=== PATIENT | female | born 1990 | race Caucasian/White ===

== ENCOUNTER 2023-01-11 13:36 | Inpatient (IN) ==
[~2023-01-11 13:36] MED LIST: ceFAZolin 2000MG 2,000 MG/15 ML SYR IV SCH
--- NOTE | 2023-01-11 13:57 | History & Physical Report ---
Date of Service January 11, 2023 Assessment & Plan (1) Previous delivery affecting , antepartum: Plan: Repeat section and bilateral salpingectomy The patient was counseled to the nature of the procedure including alternatives such as labor. Risks were discussed including bleeding infection injury to bowel bladder ureter vessels and even baby. The risks of internal organ injury were discussed as being higher with prior sections. Deep Vein Thrombosis, pulmonary embolus and breakdown of the incision discussed. Deep vein thrombosis pulmonary embolus hernia and failure of the incision to heal were discussed Patient verbalized understanding of this and was given ample time to ask questions Patient has completed 39 weeks and is now 2 to 3 cm would recommend as she is progressed from prior checks and since she is after 39 weeks there is no signs and delay with painful contractions History of Present Illness Primary Care Provider: NO PCP Visit SKY Calculator Estimated Delivery Date Method Current WG Current Estimate 01/16/23 LMP (Certain) 38w 1d LMP: 04/11/22 : 2 Full term: 1 Premature: 0 Total Number of Induced Abortions: 0 Total Number of Spontaneous Abortions: 0 Ectopics: 0 Multiple births: 0 Number of Living Children: 1 and Delivery Plans Previous *desires repeat c/s and tubal C/S WITH TUBAL SCHEDULED FOR 01/14/[address] RAMÍREZ H/o migraines--(used propranolol in prior ) *neuro consult/headache specialist -on metoprolol -growth US starting at 24wks Flu vaccine given 06/10/22- MK Presents in active labor Allergies Allergy/AdvReac Type Severity Reaction Status Date / Time No Known Allergies Allergy Verified 01/03/23 12:00 Home Medications Medication Instructions Recorded Confirmed Type prenat.vits,yvette,[id number] 1 tab PO DAILY 06/02/22 01/11/23 History metoprolol tartrate 25 mg tablet 25 mg PO BID #60 tabs 09/22/22 01/11/23 Rx loratadine 10 mg tablet (Claritin) 10 mg PO DAILY 01/03/23 01/11/23 History Patient History Medical History History of chicken pox History of COVID-02 Aug 2022 > not hospitalized Hx of migraines metoprolol for this, not HTN Surgical History S/P section x1 S/P wisdom tooth extraction Family History Grandfather (Paternal) Heart disease Denies family history of Ovarian cancer Breast cancer Colorectal cancer Social History Smoking Status: Never smoker Second Hand Exposure: No; Do You Dip or Chew Tobacco: No; Hx Alcohol Use: No Hx Substance Use: No Preferred Language: Bulgarian Communication Ability: Effective Manager Research Development Required: No Beliefs That Will Affect Care: None marital status: marital status details: Dillon Castellanos ([phone] Current Living Situation: Spouse Current Living Situation Comment: Lives at home with spouse and son current occupational status: unemployed current occupation: homemaker Feels Safe at Home: Yes Assistive Devices: None Review of Systems as per Subjective / HPI Physical Exam Constitutional: WD/WN, vitals as above well developed and well nourished Respiratory: normal respiratory effort, lungs clear to auscultation normal respiratory effort Cardiovascular: RRR, no murmur, no edema Gastrointestinal (Abdomen): normal bowel sounds, soft, nontender, no hepatosplenomegaly Results & Data Vital Signs (Past 12 Hours) Vital Signs Pulse BP 01/11/23 13:49 112 H 140/87 Coding Level of Care Code None Diagnoses Previous delivery affecting , antepartum O34.219
--- NOTE | 2023-01-11 14:00 | Anesthesiology Consultation ---
Date of Service January 11, 2023 Assessment & Plan (1) Encounter for pre-operative examination: Chart Review Chart Review: Acceptable Risk for Surgery and Patient NOT seen in Pre Admission Testing Consults Requested none History Surgery Operation Date: 01/11/23 13:55 Proposed Procedures p Section in LD - J. Panda Littlejohn MD, FACOG Allergies Allergy/AdvReac Type Severity Reaction Status Date / Time No Known Allergies Allergy Verified 01/03/23 12:00 Medications Home Medications Medication Instructions Recorded Confirmed Last Taken prenat.vits,yvette,qoy-imvq-jduja 1 tab PO DAILY 06/02/22 01/11/23 01/10/23 metoprolol tartrate 25 mg tablet 25 mg PO BID #60 tabs 09/22/22 01/11/23 01/10/23 loratadine 10 mg tablet (Claritin) 10 mg PO DAILY 01/03/23 01/11/23 01/10/23 Past Medical History Medical History History of chicken pox History of COVID-02 Aug 2022 > not hospitalized Hx of migraines metoprolol for this, not HTN Past Family History Family History Grandfather (Paternal) Heart disease Denies family history of Ovarian cancer Breast cancer Colorectal cancer Past Surgical History Surgical History S/P section x1 S/P wisdom tooth extraction Social History Smoking Status: Never smoker Do You Dip or Chew Tobacco: No Hx Alcohol Use: No Hx Substance Use: No substance use type: does not use Physical Exam Vital Signs Last Vital Signs Pulse 112 H 01/11/23 13:49 BP 140/87 01/11/23 13:49
[2023-01-11] MEDS ORDERED: PHENYLEPHRINE HCL 10 MG/ML VIAL ONE (14:06)
[2023-01-11] MEDS ORDERED: ONDANSETRON INJ 2 MG/ML 2 ML VIAL ONE (14:06)
[2023-01-11] MEDS ORDERED: KETOROLAC 30 MG/ML VIAL ONE (14:06)
[2023-01-11] MEDS ORDERED: OXYTOCIN 10 UNITS/ML VIAL ONE (14:06)
[2023-01-11] MEDS ORDERED: MoRPHine SULFATE PF 1 MG/ML 10 ML AMP/VIAL ONE (14:07)
[2023-01-11] MEDS ORDERED: fentaNYL citrate PF 100 MCG/2 ML VIAL ONE (14:07)
[2023-01-11] MEDS ORDERED: CITRIC ACID/SODIUM CITRATE 15 ML UDC ONE (14:13)
[2023-01-11] MEDS ORDERED: LACTATED RINGER'S 1,000 ML IV ONE (14:17)
[2023-01-11 14:47] LABS: Basophils # (auto) 0.06 K/uL (0-0.2); Basophils % (auto) 0.5 %; Eosinophils # (auto) 0.01 K/uL (0-0.50); Eosinophils % (auto) 0.1 %; Hematocrit (blood only) 37.7 % (37.0-47.0); Hemoglobin 12.4 g/dl (12.0-16.0); Immature Granulocytes # (auto) 0.23 K/uL (0.01-0.20); Immature Granulocytes % (auto) 2.1 %; Lymphocytes # (auto) 1.29 K/uL (1.2-3.4); Lymphocytes % (auto) 11.5 %; Mean Corpuscular Hemoglobin 30.5 pg (25.0-34.0); Mean Corpuscular Hgb Conc 32.9 g/dL (32.0-36.0); Mean Corpuscular Volume 92.6 fL (80.0-100.0); Mean Platelet Volume 10.2 fL (9.4-12.4); Monocytes # (auto) 0.68 K/uL (0.11-0.59); Monocytes % (auto) 6.1 %; Neutrophils # (auto) 8.92 K/uL (1.40-6.50); Neutrophils % (auto) 79.7 %; Platelet Count 294 K/uL (130-400); RDW Coefficient of Variation 14.5 % (11.5-14.5); Red Blood Count 4.07 M/uL (4.20-5.40); White Blood Count 11.19 K/ul (4.8-10.8)
[2023-01-11 14:52] LABS: Albumin Globulin Ratio 1.2 (0.9-2); BUN Creatinine Ratio 26.7 (10-20); Bilirubin,Total 0.5 mg/dl (0.2-1.0); Calcium 9.3 mg/dl (8.6-10.3); Creatinine Clr Calc Pharmacy 121.5 ml/min; Est GFR (African American) 139.8 ml/min; Est GFR (Non-African American) 120.6 ml/min; Globulin 3.3 gm/dl (2.5-4.0); Potassium 3.7 mmol/L (3.5-5.1); Total Protein 7.3 gm/dl (6.0-8.3)
[2023-01-11] MEDS ORDERED: LACTATED RINGER'S 500 ML IV PRN (15:33)
[2023-01-11] MEDS ORDERED: ONDANSETRON INJ 2 MG/ML 2 ML VIAL IV PRN (15:33)
[2023-01-11] MEDS ORDERED: NALOXONE HCL 0.4 MG/1 ML VIAL/CARP IV PRN (15:33)
[2023-01-11] MEDS ORDERED: ACETAMINOPHEN 1,000 MG/100 ML VIAL IV PRN (15:33)
[2023-01-11] MEDS ORDERED: diphenhydrAMINE 50 MG/ML VIAL IV PRN (15:33)
[2023-01-11] MEDS ORDERED: NALOXONE HCL 1 MG in SODIUM CHLORIDE 0.9% 1000ML 1,000 ML IV PRN (15:33)
[2023-01-11] MEDS ORDERED: ePHEDrine sulfate 50 MG/ML AMP IV PRN (15:33)
[2023-01-11] MEDS ORDERED: NALOXONE HCL 0.08 MG in SYRINGE 1.8 ML IV PRN (15:33)
[2023-01-11] MEDS ORDERED: KETOROLAC 30 MG/ML VIAL IV PRN (15:33)
[2023-01-11] MEDS ORDERED: MoRPHine SULFATE PF 1 MG/ML 10 ML AMP/VIAL INT SPINAL ONE (15:33)
[2023-01-11] MEDS ORDERED: HYDROmorphone INJ 0.5 MG/0.5 ML SYR IV PRN (15:33)
[2023-01-11] MEDS ORDERED: NALBUPHINE HCL INJ 10 MG/ML AMP IV PRN (15:33)
[2023-01-11] MEDS ORDERED: PROMETHAZINE HCL 25 MG in SODIUM CHLORIDE 0.9% 50 ML IV PRN (15:33)
[2023-01-11] MEDS ORDERED: NO NARCOTICS OR SEDATIVES SCH (15:45)
[2023-01-11] MEDS ORDERED: DC INTRASPINAL MORPHINE SCH (15:45)
[2023-01-11] MEDS ORDERED: SODIUM CHLORIDE 0.9% 1000ML 1,000 ML IV SCH (15:45)
--- NOTE | 2023-01-11 16:10 | Operative Report ---
PG Post Operative Report Pre & Post Diagnosis Operation Date: 01/11/23 13:55 Pre-Op Diagnosis: Repeat section, presents in active labor. Post-Op Diagnosis: Repeat section, presents in active labor. I identified the patient and participated in the time-out.: Yes Procedure Operation Date: 01/11/23 13:55 Actual Procedures p Section in LD - Kiesha Littlejohn MD, FACOG Surgeon Kiesha Littlejohn MD, FACOG Canal Lock Tender Chief Operator Dr. Burns Estimated Blood Loss 600 Findings Consistent with Post-Op Diagnosis normal anatomy Specimens Cord blood Description of Procedure Regional anesthetic had been given by anesthesia patient was prepped and draped with a leftward tilt preoperative antibiotics had been given in appropriate timing by anesthesiology. Once the prep was allowed to fully dry timeout was performed. Pickups with teeth were used to test the incision area was found to be adequate for incision as the patient did not feel sharp pain. Scalpel was used to make a Pfannenstiel incision on the lower abdomen. We then cut through the subcutaneous fat down to the level of the anterior rectus sheath fascia this was cut in the midline and then extended laterally with the curved Andres scissors. At this stage we then placed 2 Rebecca clamps on the anterior aspect of the fascia. Using the curved Andres's we are able to dissect the fascia superiorly away from the rectus muscles. Care was taken to maintain hemostasis. Rebecca clamps were then placed to the inferior aspect of the anterior sheath of the fascia. Fascia was then dissected away from the rectus muscles inferiorly towards the pubic bone. A Rebecca was then placed in the midline both inferiorly and superiorly. This w as to allow exposure by retraction rectus muscles were in the midline with were then able to cut through the peritoneum and then enter the peritoneal cavity. Opening was enlarged to allow exposure of the peritoneal cavity both superiorly and inferiorly. Once adequate space was obtained a bladder retractor was placed to expose the lower segment Metzenbaums were used to dissect the bladder flap inferiorly away from the uterus. This was done sharply bladder retractor was then repositioned to expose the lower segment of the uterus Fresh scalpel was used to make a low transverse incision on the uterus. Uterus was then entered bluntly with the operators finger, membranes ruptured and the opening was enlarged using the operators fingers bluntly pulling superiorly and inferiorly to allow exposure. Baby was delivered by first flexion of the head elevation of the head out of the pelvis and then pressure by the triage assistant on the maternal abdomen. Baby's head was then delivered mouth and then nares were suctioned and then using gentle traction the baby was fully delivered. Live vigorous infant. Fluid was clear cord clamped and cut cord gases obtained cord blood obtained baby handed to pediatrics. Placenta removed was removed with traction we ensure the entire placenta was removed with a moist lap sponge into the uterus Uterus was then exteriorized. IV Pitocin had been started by anesthesia tone improved there were no extensions the uterus was then closed using 0 Monocryl in a 2 layer closure the first layer closed in a running locked fashion from left to right and then a second closure from left to right in a running nonlocked fashion. At this stage hemostasis was excellent. The patient had requested tubal ligation we have talked about salpingectomy spe cifically using a Lisa we grasped the right fallopian tube first at the fimbriated end using a LigaSure device we coagulated and then cut the mesosalpinx attachments with the fallopian tube we did this progressively until the full tube was removed. Exact same process was repeated on the left side hemostasis was excellent and it should be noted after placing the uterus back in the peritoneal cavity revisualize the area of the tubal and it was hemostatic Uterus was placed back in the peritoneal cavity with suction irrigation out and inspection of the uterus at this stage revealed excellent hemostasis Retractors were removed urine color was clear at this stage of the case we inspected the rectus muscles they were hemostatic fascia was closed with 0 Vicryl subcutaneous fat was irrigated and closed with 3-0 Vicryl skin closed with 4-0 subcuticular Monocryl I attest to the content of the Intraoperative Record and any orders documented therein. Any exceptions are noted below. OB Procedure Charges 30591
[2023-01-11] MEDS ORDERED: MAGNESIUM HYDROXIDE SUSP 30 ML UDC PO PRN (16:36)
[2023-01-11] MEDS ORDERED: LACTATED RINGER'S 1,000 ML IV SCH (16:36)
[2023-01-11] MEDS ORDERED: SENNA 8.6 MG TAB PO PRN (16:36)
[2023-01-11] MEDS ORDERED: HYDROCORTISONE ACETATE 25 MG SUPP PR PRN (16:36)
[2023-01-11] MEDS ORDERED: DIPHTHERIA/TETANUS/PERTUSSIS Vaccine (Tdap, Age 7+yrs) 0.5mL SYR/VL IM ONE (16:36)
[2023-01-11] MEDS ORDERED: BENZOCAINE 20% AER SPR 82.5 GM CAN EXT PRN (16:36)
--- NOTE | 2023-01-11 17:14 | Anesthesiology Progress Note ---
Date of Service January 11, 2023 Anesthesia Post Procedure Vital Signs Vital Signs: Temp Pulse Resp BP Pulse Ox 01/11/23 16:52 18 01/11/23 16:42 18 01/11/23 16:32 18 01/11/23 16:12 97.5 F L 20 01/11/23 16:22 20 01/11/23 17:12 87 125/75 01/11/23 17:09 82 98 01/11/23 17:04 80 99 01/11/23 17:03 79 122/66 01/11/23 16:59 85 98 01/11/23 16:54 88 98 01/11/23 16:52 78 115/68 01/11/23 16:49 85 98 01/11/23 16:44 86 98 01/11/23 16:42 81 127/72 01/11/23 16:39 97 H 98 01/11/23 16:34 98 01/11/23 16:34 94 H 01/11/23 16:34 91 H 125/73 01/11/23 16:29 93 H 98 01/11/23 16:24 77 98 01/11/23 16:23 75 104/56 L 01/11/23 16:12 90 103/60 01/11/23 16:11 97 H 99 01/11/23 14:05 99 H 126/89 01/11/23 13:49 112 H 140/87 Transfer of Care Handoff Completed per policy Notes Mental Status: alert / awake / arousable and participated in evaluation Patient Amnestic to Procedure: Yes Nausea / Vomiting: adequately controlled Pain: adequately controlled Airway Patency, RR, SpO2: stable & adequate BP & HR: stable & adequate Hydration State: stable & adequate Neuraxial Anesthesia: was administered and sensory block is resolving Anesthetic Complications: no major complications apparent and Pt Satisfied with anesthetic care
[2023-01-11] MEDS: SIMETHICONE 80 MG CHEW PO SCH ×2 (17:50→20:38)
[2023-01-11] MEDS: OXYTOCIN 20 UNITS in LACTATED RINGER'S 1,000 ML IV SCH (19:12)
[2023-01-11] MEDS: METOPROLOL TARTRATE 25 MG TAB PO SCH (20:38)
[2023-01-11] MEDS: DOCUSATE SODIUM 100 MG CAP PO SCH (20:38)
[2023-01-12] MEDS: OXYTOCIN 20 UNITS in LACTATED RINGER'S 1,000 ML IV SCH (03:09)
[2023-01-12 06:21] LABS: Basophils # (auto) 0.04 K/uL (0-0.2); Basophils % (auto) 0.4 %; Eosinophils # (auto) 0.09 K/uL (0-0.50); Hematocrit (blood only) 28.7 % (37.0-47.0); Hemoglobin 9.6 g/dl (12.0-16.0); Immature Granulocytes # (auto) 0.12 K/uL (0.01-0.20); Immature Granulocytes % (auto) 1.3 %; Lymphocytes # (auto) 1.54 K/uL (1.2-3.4); Lymphocytes % (auto) 16.4 %; Mean Corpuscular Hemoglobin 30.5 pg (25.0-34.0); Mean Corpuscular Hgb Conc 33.4 g/dL (32.0-36.0); Mean Corpuscular Volume 91.1 fL (80.0-100.0); Mean Platelet Volume 10.1 fL (9.4-12.4); Monocytes # (auto) 0.79 K/uL (0.11-0.59); Monocytes % (auto) 8.4 %; Neutrophils # (auto) 6.83 K/uL (1.40-6.50); Neutrophils % (auto) 72.5 %; Platelet Count 234 K/uL (130-400); RDW Coefficient of Variation 14.3 % (11.5-14.5); RDW Standard Deviation 46.8 fL (36.4-46.3); Red Blood Count 3.15 M/uL (4.20-5.40); White Blood Count 9.41 K/ul (4.8-10.8)
--- NOTE | 2023-01-12 08:01 | Obstetrical Progress Note ---
Date of Service <Aldo BurnsDO - Last Filed: 01/12/23 08:01> January 12, 2023 Assessment & Plan <Aldo BurnsDO - Last Filed: 01/12/23 08:01> (1) Postcesarean section: - Feels well today. Eating well, Condon in place, will remove Condon today and have patient ambulate on her own. - Pain well controlled without the need of pain meds at this time. - Routine care -- OOB, ambulation, diet progression as tolerated - After discharge will have 6 week follow-up with Annet[facility]. Day #:: 1 <Kiesha Littlejohn MD, FACOG - Last Filed: 01/13/23 07:52> (1) Postcesarean section: Subjective <Aldo BurnsDO - Last Filed: 01/12/23 08:01> Ambulation: limited ambulation Voiding: condon catheter in place Diet Tolerance:: regular diet Lochia:: Small Feeding Type:: breast feeding Current Pain Level(1-10): 3 Review of Systems Denies fever, chills, sweats Denies shortness of breath, difficulty breathing, chest pain, palpitations, chest pressure. Denies breast pain. Denies dysuria. Denies changes in vision. Mild headache Physical Exam <Aldo BurnsDO - Last Filed: 01/12/23 08:01> General: Alert, oriented. No acute distress. Cardiac: Regular rate and rhythm, no murmurs/rubs/gallops. Respiratory: Clear to auscultation bilaterally a/p, no wheezes/rales/rhonchi. No increased work of breathing. Symmetrical chest rise. No respiratory distress. Abdomen: Soft, nontender, nondistended. Bowel sounds present. Uterus: Uterine fundus firm, palpable 1 cm below umbilicus. Lower Extremities: No lower extremity edema or swelling. No deep calf pain. Chandler's negative bilaterally. Results & Data <Aldo BurnsDO - Last Filed: 01/12/23 08:01> Vital Signs (Past 12 Hours) Vital Signs Temp Pulse Resp BP Pulse Ox O2 Del Method 01/12/23 07:00 16 97 01/12/23 07:00 36.8 C 85 16 107/59 L 99 Room Air 01/12/23 05:28 18 98 01/12/23 04:28 18 97 01/12/23 03:30 36.9 C 82 18 99/62 L 100 Room Air 01/12/23 03:35 18 100 01/12/23 02:13 18 96 01/12/23 01:05 16 93 01/12/23 00:10 18 95 01/11/23 23:08 36.7 C 71 18 115/71 98 Room Air 01/11/23 23:08 18 98 01/11/23 22:23 18 98 01/11/23 21:15 18 97 01/11/23 20:37 89 122/77 01/11/23 20:26 18 96 <Kiesha Littlejohn MD, FACOG - Last Filed: 01/13/23 07:52> Co-Signing Physician Notes Resident Physician Supervision Note: I was present with Dr. Burns during the history and exam. I discussed the case with the resident and agree with the findings and plan as documented in the note. Any exceptions or clarifications are listed here: [None] Documented By: Kiesha Littlejohn MD, FACOG Resident Activity Tracking <Aldo Burns DO - Last Filed: 01/12/23 08:01> Resident Involvement: Resident Care Provided Care Provided: OB Delivery
[2023-01-12] MEDS: LORATADINE 10 MG TAB PO SCH (08:35)
[2023-01-12] MEDS: FERROUS SULFATE 325 MG TAB PO SCH (08:36)
[2023-01-12] MEDS: DOCUSATE SODIUM 100 MG CAP PO SCH ×2 (08:36→20:12)
[2023-01-12] MEDS: METOPROLOL TARTRATE 25 MG TAB PO SCH ×2 (08:36→20:59)
[2023-01-12] MEDS: PRENATAL VITAMIN 1 TAB PO SCH (08:36)
[2023-01-12] MEDS: IBUPROFEN 600 MG TAB PO PRN ×3 (08:36→20:12)
[2023-01-12] MEDS: SIMETHICONE 80 MG CHEW PO SCH ×4 (08:36→20:12)
[2023-01-12] MEDS ORDERED: NON-FORMULARY MEDICATION (Prenat.Vits,Cal,Min-Iron-Folic tablet) PO SCH (09:00)
[2023-01-12] MEDS ORDERED: ONDANSETRON INJ 2 MG/ML 2 ML VIAL IV PRN (09:33)
[2023-01-12] MEDS ORDERED: KETOROLAC 30 MG/ML VIAL IV PRN (09:33)
[2023-01-12] MEDS ORDERED: diphenhydrAMINE 50 MG/ML VIAL IV PRN (09:33)
[2023-01-12] MEDS ORDERED: diphenhydrAMINE Capsule 25 MG CAP PO PRN (09:33)
[2023-01-12] MEDS ORDERED: PROMETHAZINE HCL 25 MG in SODIUM CHLORIDE 0.9% 50 ML IV PRN (09:33)
[2023-01-12] MEDS ORDERED: bisacodyL 5 MG TABEC PO SCH (20:00)
[2023-01-12] MEDS: oxyCODONE/ACETAMINOPHEN 5mg/325mg TAB PO PRN (22:30)
[2023-01-13] MEDS: oxyCODONE/ACETAMINOPHEN 5mg/325mg TAB PO PRN ×2 (05:58→11:20)
--- NOTE | 2023-01-13 07:06 | Obstetrical Progress Note ---
Date of Service <Aldo Burns - Last Filed: 01/13/23 07:09> January 13, 2023 Assessment & Plan <Aldo Burns - Last Filed: 01/13/23 07:09> (1) Postcesarean section: - Feels well today. Eating well, voiding well, ambulating well. - Pain well controlled with pain meds. - Routine care -- OOB, ambulation, diet progression as tolerated - After discharge will have 6 week follow-up with Annetta. - Will D/C today. Day #:: 2 <Naina Parsons MD - Last Filed: 01/13/23 07:32> (1) Postcesarean section: Subjective <Aldo Burns - Last Filed: 01/13/23 07:09> Ambulation: ambulating normally Voiding: no voiding problems Passing Gas:: Yes Diet Tolerance:: regular diet Lochia:: Small Feeding Type:: breast feeding Current Pain Level(1-10): 3 Review of Systems Denies fever, chills, sweats Denies shortness of breath, difficulty breathing, chest pain, palpitations, chest pressure. Denies breast pain. Denies dysuria. Denies headache or changes in vision. Physical Exam <Aldo Burns - Last Filed: 01/13/23 07:09> General: Alert, oriented. No acute distress. Cardiac: Regular rate and rhythm, no murmurs/rubs/gallops. Respiratory: Clear to auscultation bilaterally a/p, no wheezes/rales/rhonchi. No increased work of breathing. Symmetrical chest rise. No respiratory distress. Abdomen: Soft, nontender, nondistended. Bowel sounds present, Wound healing well Uterus: Uterine fundus firm, palpable 3 cm below umbilicus. Lower Extremities: No lower extremity edema or swelling. No deep calf pain. Chandler's negative bilaterally. Results & Data <Aldo Burns - Last Filed: 01/13/23 07:09> Vital Signs (Past 12 Hours) Vital Signs Temp Pulse Resp BP O2 Del Method 01/12/23 22:22 36.8 C 82 18 119/82 Room Air 01/12/23 20:55 79 114/74 01/12/23 19:47 36.6 C 87 18 117/77 Room Air Laboratory Results 01/12/23 05:52 01/11/23 14:11 <Naina Parsons MD - Last Filed: 01/13/23 07:32> Co-Signing Physician Notes Resident Physician Supervision Note: I interviewed and examined the patient. Discussed with Dr. Burns and agree with findings and plan as documented in the note. Any exceptions or clarifications are listed here: POD2 s/p rLTCS/BTL, doing well. Having some diarrhea but manageable. VSS, exam benign and wnl, incision c/d/i. Desires d/c home today, stable to do so Documented By: Naina Parsons MD
[2023-01-13 07:44] LABS: Hematocrit (blood only) 30.3 % (37.0-47.0); Hemoglobin 10.3 g/dl (12.0-16.0)
[2023-01-13] MEDS: DOCUSATE SODIUM 100 MG CAP PO SCH (08:29)
[2023-01-13] MEDS: SIMETHICONE 80 MG CHEW PO SCH (08:29)
[2023-01-13] MEDS: FERROUS SULFATE 325 MG TAB PO SCH (08:29)
[2023-01-13] MEDS: PRENATAL VITAMIN 1 TAB PO SCH (08:29)
[2023-01-13] MEDS: LORATADINE 10 MG TAB PO SCH (09:39)
[2023-01-13] MEDS: METOPROLOL TARTRATE 25 MG TAB PO SCH (09:39)
[2023-01-13] MEDS ORDERED: bisacodyL 10 MG SUPP PR PRN (16:02)
== END 2023-01-13 11:55 | disposition home or self-care (01) | DRG 784 ==
LOC: OPB 13:36 → 4S1 13:38 → 4E2 18:59